=== PATIENT | female | born 1995 | race Caucasian/White ===

== ENCOUNTER 2018-09-23 00:50 | Emergency (ER) | payer OTHER ==
--- NOTE | 2018-09-23 01:22 | ERPHSYRPT ---
- History of Present Illness Time Seen by Provider: 09/23/18 01:20 Historian: patient Exam Limitations: no limitations Physician History: 23 y/o white female presents with intermittent coughing leading to vomiting and soiling herself. this is occurring because coughing has been forceful and frequent. sig other just completed a bout of bronchitis. pt denies nausea and denies abd pain. she denies fever, sore throat, earaches or bodyaches. Timing/Duration: day(s) (6 to 7 days), intermittent Activities at Onset: none Abdominal Pain Onset Location: other (non) Pain Radiation: no radiation Severity of Pain-Max: mild Severity of Pain-Current: mild Modifying Factors: Improves With: coughing, vomiting (from gagging and repeated coughing). Worsens With: lying down Previous symptoms: no prior history Allergies/Adverse Reactions: Penicillins Allergy (Verified 09/23/18 01:40) Rash Home Medications: Levothyroxine Sodium 100 Mcg [Synthroid 100 Mcg] 0 mcg PO DAILY 09/23/18 [ History] - Review of Systems Constitutional: No Symptoms Eyes: No Symptoms Ears, Nose, & Throat: No Symptoms Respiratory: Cough, No Dyspnea, No Stridor, No Wheezing Cardiac: No Symptoms, No Chest Pain, No Palpitations, No Syncope Abdominal/Gastrointestinal: Vomiting, No Abdominal Pain, No Nausea, No Diarrhea Genitourinary Symptoms: No Symptoms, No Dysuria, No Frequency, No Hematuria Musculoskeletal: No Symptoms Skin: No Symptoms Neurological: No Symptoms Psychological: No Symptoms Endocrine: No Symptoms Hematologic/Lymphatic: No Symptoms Immunological/Allergic: No Symptoms All Other Systems: Reviewed and Negative - Past Medical History Pertinent Past Medical History: Yes Neurological History: No Pertinent History ENT History: No Pertinent History Cardiac History: No Pertinent History Respiratory History: No Pertinent History Endocrine Medical History: No Pertinent History Musculoskeletal History: No Pertinent History GI Medical History: No Pertinent History History: No Pertinent History Psycho-Social History: No Pertinent History Female Reproductive Disorders: No Pertinent History - Past Surgical History Neuro Surgical History: No Pertinent History Cardiac: No Pertinent History Respiratory: No Pertinent History Gastrointestinal: No Pertinent History Genitourinary: No Pertinent History Musculoskeletal: No Pertinent History - Nursing Vital Signs Nursing Vital Signs: Initial Vital Signs Temperature 97.3 F 09/23/18 00:59 Pulse Rate 123 H 11/25/18 00:59 Respiratory Rate 22 09/23/18 00:59 Blood Pressure 111/87 09/23/18 00:59 O2 Sat by Pulse Oximetry 94 L 09/23/18 00:59 Pain Scale Pain Intensity 0 - Physical Exam General Appearance: mild distress, alert, anxiety Eye Exam: PERRL/EOMI, eyes nml inspection Ears, Nose, Throat Exam: normal ENT inspection, TMs normal, pharynx normal, moist mucous membranes Neck Exam: normal inspection, non-tender, supple, full range of motion Respiratory Exam: normal breath sounds, lungs clear, airway intact, No chest tenderness, No respiratory distress, No accessory muscle use, No rhonchi, No wheezing, No stridor Cardiovascular Exam: tachycardia Gastrointestinal/Abdomen Exam: soft, normal bowel sounds, No tenderness, No guarding, No rebound Pelvic Exam: not done Rectal Exam: not done Back Exam: normal inspection, normal range of motion, CVA tenderness Extremity Exam: normal inspection Neurologic Exam: alert, oriented x 3, cooperative, biomedical instrument technician II-XII nml as tested Skin Exam: normal color, warm, dry Lymphatic Exam: No adenopathy SpO2 Interpretation: borderline oxygenation - Course Nursing assessment & vital signs reviewed: Yes Ordered Tests: Medication Summary Generic Name Dose Route Start Last Admin Trade Name Freq PRN Reason Stop Dose Admin Hydrocodone Bitart/Acetaminophen 15 ml 09/23/18 01:48 Hydrocodone-Acetamin 2.5-108/5 Ml Solution PO 09/23/18 01:49 STAT STA - Progress Progress: improved, re-examined Progress Note: 09/23/18 01:49 RT evaluated pt. per RT, no need for neb tx at this time. Counseled pt/family regarding: diagnosis, need for follow-up - Departure Time of Disposition: 01:50 Departure Disposition: Home Clinical Impression: Bronchitis Condition: Stable Critical Care Time: No Referrals: EDY JANSEN [Primary Care Provider] - Additional Instructions: drink plenty of fluids. follow up with primary doctor for persistent symptoms Prescriptions: Albuterol 8 gm Mdi Hfa [Ventolin Hfa MDI] 8 gm IH Q4H #1 hfa.aer.ad Azithromycin 250 mg [Zithromax 250 MG TABLET] 250 mg PO ZPACK #6 tablet Hydrocodone Bit/Acetaminophen [Hydrocodone-Acetaminophen Soln] 10 ml PO Q6H # 120 ml Prednisone 10 mg [Deltasone 10 mg] 10 mg PO TID #12 tablet
[2018-09-23] MEDS ORDERED: solu-MEDROL 125 MG ONE (01:55)
[2018-09-23] MEDS ORDERED: HYDROCODONE-ACETAMIN 2.5-108/5 ML SOLUTION ONE (01:55)
[2018-09-23] MEDS: HYDROCODONE-ACETAMIN 2.5-108/5 ML SOLUTION PO STA (01:58)
[2018-09-23] MEDS: solu-MEDROL 125 MG IM ONE (01:59)
[2018-09-23 02:45] VITALS: BP 108/61; PULSE 108; O2SAT 95
== END 2018-09-23 02:36 | disposition home or self-care (01) ==
LOC: ED 00:50
DX: J40 Bronchitis, not specified as acute or chronic (principal)
CPT/HCPCS: 96372; 99283; J2930; A9270-GY

== ENCOUNTER 2025-01-18 18:27 | Emergency (ER) | payer OTHER ==
[2025-01-18 19:43] VITALS: RESP 18; TEMP 100.2; O2SAT 98
--- NOTE | 2025-01-18 19:52 | ERPHSYRPT ---
- History of Present Illness Source: patient Exam Limitations: no limitations Patient Subjective Stated Complaint: pt. states,"a couple days ago my ankles and feet started to swell and now they are red, warm and painful, it hurts to walk at all and i have a prickly sensation like i'm being stabbed by thorns." Triage Nursing Assessment: pt. arrives to room in w/c, transfered to bed with no difficulties, a&ox3, Skin P/W/D, resp even unlabored, bilateral lower extremities with edema, redness and warmth, no weeping or blistering noted. painful to touch. Physician History: Patient has what appears to be cellulitis on her left lower extremity. There is a little bit on her right lower extremity as well 2. She has not had any fever or chills. It has been going on for about a week it slowly expanded. It started around her ankle and has moved upward on her leg. It is warm to the touch. She has not had any toxic or systemic symptoms or fevers or chills. She does not have diabetes.Nothing makes his symptoms better or worse. Allergies/Adverse Reactions: Penicillins Allergy (Verified 09/23/18 01:40) Rash Home Medications: Levothyroxine Sodium 100 Mcg [Synthroid 100 Mcg] 100 mcg PO DAILY 09/23/18 [History] Hx Tetanus, Diphtheria Vaccination/Date Given: No Hx Influenza Vaccination/Date Given: No Hx Pneumococcal Vaccination/Date Given: No Immunizations Up to Date: No Travel Risk - International Travel Have you traveled outside of the country in past 3 weeks: No - Emerging Infectious Disease Are you exhibiting symptoms associated with any current EIDs: No - Review of Systems Constitutional: No Symptoms Eyes: No Symptoms Skin: Cellulitis Neurological: No Symptoms All Other Systems: Reviewed and Negative - Past Medical History Pertinent Past Medical History: Yes Neurological History: No Pertinent History ENT History: No Pertinent History Cardiac History: No Pertinent History Respiratory History: No Pertinent History Endocrine Medical History: No Pertinent History Musculoskeletal History: No Pertinent History GI Medical History: No Pertinent History History: No Pertinent History Psycho-Social History: No Pertinent History Female Reproductive Disorders: No Pertinent History - Past Surgical History Past Surgical History: Yes Neuro Surgical History: No Pertinent History Cardiac: No Pertinent History Respiratory: No Pertinent History Gastrointestinal: No Pertinent History Genitourinary: No Pertinent History Musculoskeletal: No Pertinent History - Female History Hx Last Menstrual Period: 12/13/24 Hx Now: No - Social History Smoking Status: Never smoker Exposure to second hand smoke: Yes Drug Use: none - Social Determinants of Health Will the patient participate in the screening: Declined to provide - Nursing Vital Signs Nursing Vital Signs: Initial Vital Signs Temperature 100.2 F 01/18/25 18:27 Pulse Rate 109 H 01/18/25 18:27 Respiratory Rate 18 01/18/25 18:27 Blood Pressure 125/84 01/18/25 18:27 O2 Sat by Pulse Oximetry 98 01/18/25 18:27 Pain Scale Pain Intensity 6 - Physical Exam General Appearance: no apparent distress Skin Exam: other (Rash consistent with cellulitis on the left lower extremity. It starts on the dorsum of the midfoot and goes about midway up the leg. It circumferential. It is warm to the touch. It has some mild induration. Its borders are consistent with cellulitis.There is also a small lesion on the right an) SpO2: 98 - Course Nursing assessment & vital signs reviewed: Yes - Progress Progress: unchanged Progress Note: The patient does not have any contraindications to outpatient oral therapy. I am going to start her onClindamycin. She has a penicillin allergy.She has a family doctor went to have her follow-up with him in 2 to 3 days or return if symptoms worsen. 01/18/25 19:48 Medical Desision Making - Independent Historian Additional History obtained from: Spouse - Risk of complications Minimal Risk: Minimal risk of morbidity - Departure Departure Disposition: Home Clinical Impression: Cellulitis of anterior lower leg Condition: Stable Critical Care Time: No Referrals: EDY JANSEN NP [Primary Care Provider] - Follow up/PCP as directed Instructions: Cellulitis (skin infection) in adults - Discharge instructions
[2025-01-18] MEDS ORDERED: CLEOCIN 150 MG CAPSULE ONE (19:58)
[2025-01-18] MEDS: CLEOCIN 150 MG CAPSULE PO ONE (20:00)
[2025-01-18 20:21] VITALS: BP 118/80; PULSE 98
== END 2025-01-18 20:23 | disposition home or self-care (01) ==
LOC: ED 18:27
DX: L03.116 Cellulitis of left lower limb (principal); Z79.899 Other long term (current) drug therapy
CPT/HCPCS: 99281; 99283; A9270-GY